=== PATIENT | male | born 1955 | race Caucasian/White ===

== ENCOUNTER 2023-01-23 06:02 | Day surgery (SDC) | payer MEDICARE, OTHER ==
[~2023-01-23 06:02] MED LIST: Sodium Chloride 0.9% 10 ML Syringe FLUSH PRN; Sodium Chloride 0.9% 10 ML Syringe FLUSH SCH
[2023-01-23] MEDS ORDERED: Midazolam 1 MG/ML 2 ML SDV IV ONE (06:03)
[2023-01-23] MEDS ORDERED: fentaNYL 100 MCG/2 ML SDV IV ONE (06:03)
[2023-01-23] MEDS: Dextrose 5%-0.45% NaCl 1,000 ML IV SCH (06:50)
[2023-01-23] MEDS ORDERED: Midazolam 1 MG/ML 2 ML SDV ONE (07:13)
[2023-01-23] MEDS ORDERED: fentaNYL 100 MCG/2 ML SDV ONE (07:13)
[2023-01-23] MEDS: fentaNYL 100 MCG/2 ML SDV IV ONE ×2 (07:22)
[2023-01-23] MEDS: Midazolam 1 MG/ML 2 ML SDV IV ONE ×4 (07:22→07:30)
[2023-01-23] MEDS ORDERED: Dextrose 5%-0.45% NaCl 1,000 ML IV SCH (07:30)
== END 2023-01-23 09:25 | disposition home or self-care (01) ==
LOC: DL.ENDO 06:02
PROVIDERS: ATTEND Internal Medicine Gastroenterology
DX: Z12.11 Encounter for screening for malignant neoplasm of colon (principal); D12.4 Benign neoplasm of descending colon; K64.8 Other hemorrhoids; J44.9 Chronic obstructive pulmonary disease, unspecified; I25.10 Atherosclerotic heart disease of native coronary artery without angina pectoris; I13.0 Hypertensive heart and chronic kidney disease with heart failure and stage 1 through stage 4 chronic kidney disease, or unspecified chronic kidney disease; N18.9 Chronic kidney disease, unspecified; I50.9 Heart failure, unspecified; K21.9 Gastro-esophageal reflux disease without esophagitis; E66.01 Morbid (severe) obesity due to excess calories; Z68.34 Body mass index [BMI] 34.0-34.9, adult
CPT/HCPCS: 45385; J2250; J3010; J7042; 88305